=== PATIENT | male | born 1995 | race Caucasian/White ===

== ENCOUNTER 2017-10-03 07:49 | Emergency (ER) | payer MEDICAID ==
[2017-10-03] MEDS ORDERED: Ketorolac 60 MG/2 ML SDV IM ONE (08:29)
--- NOTE | 2017-10-03 08:32 | EDM.PDOC ---
ED HPI GENERAL MEDICAL PROBLEM - General Chief Complaint: ENT Problem Stated Complaint: TOOTH PAIN Time Seen by Provider: 10/03/17 08:32 Source of Information: Reports: Patient History Limitations: Reports: No Limitations - History of Present Illness INITIAL COMMENTS - FREE TEXT/NARRATIVE: pt arrived with severe pain in a lower molar. A month ago he had a root canal done and he has a temporary filing in it. H had this done at the [facility] [place]. Onset: Gradual, Other ( Last 2-3 days. ) Duration: Hour(s):, Getting Worse Location: Reports: Face Quality: Reports: Sharp, Stabbing Severity: Moderate Associated Symptoms: Reports: No Other Symptoms Face Pain Score (Numeric/FACES): 10 - Related Data Allergies Allergy/AdvReac Type Severity Reaction Status Date / Time No Known Allergies Allergy Verified 10/03/17 08:06 Home Meds: Home Meds NK [No Known Home Meds] 10/03/17 [History] Past Medical History Respiratory History: Reports: Asthma - Past Surgical History GI Surgical History: Reports: Appendectomy, Hernia, Abdominal Social & Family History - Tobacco Use Smoking Status *Q: Current Every Day Smoker Years of Tobacco use: 3 Packs/Tins Daily: 0.5 - Caffeine Use Caffeine Use: Reports: Coffee, Soda - Recreational Drug Use Recreational Drug Use: No ED ROS ENT - Review of Systems Review Of Systems: See Below Constitutional: Reports: No Symptoms HEENT: Reports: Dental Pain Respiratory: Reports: No Symptoms Cardiovascular: Reports: No Symptoms Endocrine: Reports: No Symptoms GI/Abdominal: Reports: No Symptoms : Reports: No Symptoms Musculoskeletal: Reports: No Symptoms Skin: Reports: No Symptoms Neurological: Reports: No Symptoms Psychiatric: Reports: No Symptoms ED EXAM, ENT - Physical Exam Exam: See Below Text/Narrative:: pt arrived with sig pain in the left lower molar area. 1 month ago he had a root canal nd now he has severe pain. Exam Limited By: No Limitations General Appearance: Alert, Moderate Distress Ears: Normal TMs Nose: Normal Inspection Mouth/Throat: Dental Pain, Dental Tenderness, Other (pt does not have swelling of the gum he could hve an abcess of the root. ) Head: Atraumatic Neck: Normal Inspection Respiratory/Chest: No Respiratory Distress Course - Vital Signs Last Recorded V/S: Last Vital Signs Temp 35.4 C 10/03/17 08:08 Pulse 76 10/03/17 08:08 Resp 18 10/03/17 08:08 BP 132/95 H 10/03/17 08:08 Pulse Ox 99 10/03/17 08:08 - Orders/Labs/Meds Meds: Medications Discontinued Medications Generic Name Dose Route Start Last Admin Trade Name Melania PRN Reason Stop Dose Admin Ketorolac Tromethamine 60 mg 10/03/17 08:29 Toradol IM 10/03/17 08:30 ONETIME ONE - Re-Assessments/Exams Free Text/Narrative Re-Assessment/Exam: 10/03/17 08:42 Pt was given torodol 60 mg im. Id id suggest to him not to be on the roof but to work on the ground today. Departure - Departure Time of Disposition: 08:30 Disposition: Home, Self-Care 01 Condition: Fair Clinical Impression: Infected tooth - Discharge Information Referrals: PCP,None [Primary Care Provider] - Forms: ED Department Discharge Care Plan Goals: get appt at the [facility] [place] as soon as possible. Amoxicillin 500mg tid. torodol 10mg q6h as needed for pain, norco 5/325 at hs until he can be seen.
== END 2017-10-03 08:52 | disposition home or self-care (01) ==
LOC: JP.ED 07:49
DX: K04.7 Periapical abscess without sinus (principal); F17.210 Nicotine dependence, cigarettes, uncomplicated
CPT/HCPCS: 96372; 99283; J1885